=== PATIENT | male | born 1935 | race Caucasian/White ===

== ENCOUNTER 2017-03-22 14:54 | Inpatient (IN) | payer MEDICARE, BC ==
[~2017-03-22] VITALS: Ht 177.8 cm; Wt 100.9 kg
[2017-03-22 15:36] LABS: BASOPHILS 0.2 % (0-2); EOSINOPHILS 3.2 % (0-7); HEMATOCRIT 23.6 % (42.0-54.0); HEMOGLOBIN 7.6 g/dL (13.5-17.5); IMMATURE GRANULOCYTES 0.7 % (0-5); LYMPHOCYTES 19.3 % (15-50); MCH 29.7 pg (26.0-34.0); MCHC 32.2 g/dL (31.0-37.0); MCV 92.2 fL (80.0-100.0); MEAN PLATELET VOLUME 10.9 fL (7.4-10.4); MONOCYTES 8.1 % (2-11); NEUTROPHILS 68.5 % (40-80); PLATELET COUNT 195 10x3/uL (130-400); RBC 2.56 10x6/uL (4.20-6.10); RDW 14.7 % (11.5-14.5); WBC 8.4 10x3/uL (4.8-10.8)
[2017-03-22 15:44] LABS: APTT 35.2 SECONDS (22.8-39.4)
[2017-03-22 15:45] LABS: INR 2.72 (0.85-1.17)
[2017-03-22 16:07] LABS: ALBUMIN 3.2 g/dL (3.4-5.0); ANION GAP 11.2 mmol/L (8-16); BILIRUBIN - TOTAL 0.4 mg/dL (0.2-1.3); CALCIUM 8.4 mg/dL (8.5-10.1); CARBON DIOXIDE 22.7 mmol/L (21.0-32.0); CREATININE - SERUM 2.3 mg/dL (0.6-1.3); POTASSIUM - SERUM 4.9 mmol/L (3.5-5.1); PROTEIN - SERUM 6.6 g/dL (6.4-8.2)
[2017-03-22] MEDS ORDERED: CRESTOR20 MG PO (17:33)
[2017-03-22] MEDS ORDERED: COZAAR100 MG PO (17:33)
[2017-03-22] MEDS ORDERED: METOPROLOL TART50 MG PO (17:33)
[2017-03-22] MEDS ORDERED: PLAVIX75 MG PO (17:33)
[2017-03-22] MEDS ORDERED: COUMADIN2.5 MG PO (17:33)
[2017-03-22] MEDS ORDERED: JANUVIA50 MG PO (17:33)
[2017-03-22] MEDS ORDERED: NEURONTIN 300300 MG PO (17:33)
--- NOTE | 2017-03-22 18:50 | NUR ---
REC'D REPORT FROM OUTSIDE [employer] SAL[employer] REPRESENTATIVEKATIE CUETO - AWAITING TRANSFER
[2017-03-22 19:00] VITALS: BP 178/83
--- NOTE | 2017-03-22 19:00 | NUR ---
1900: Pt rec'd from ED via STR and placed in room wt HOB 30 degrees at this time. All monitors established and alarms on.
--- NOTE | 2017-03-22 19:06 | NUR ---
PT TRANSFERRED VIA STRETCHER WITH BAKER HEAD (ROM) - PT AA&O X 3 - DENIES PAIN NOR DISTRESSS. PT ABLE TO STAND AND TRANSFER TO BED WITH ASST X1. REPORT GIVEN TO ONCOMING RN
--- NOTE | 2017-03-22 19:15 | NUR ---
1914: Pt with RTLSC intact with NS and PRBC infusing.
[2017-03-22 19:30] VITALS: BP 178/83; BMI 31.5
[2017-03-22 20:00] VITALS: BP 157/76
--- NOTE | 2017-03-22 20:00 | NUR ---
2000: Dr. Read here at bedside. New orders rec'd and noted. Protonix gtt started at 8 mg/hr.
[2017-03-22] MEDS ORDERED: LOPRESSOR25 MG PO (20:18)
[2017-03-22] MEDS ORDERED: HYDROCODONE-APA1 TAB PO (20:20)
[2017-03-22 21:00] VITALS: BP 154/77
--- NOTE | 2017-03-22 21:00 | NUR ---
2100: Pt's son in room and update provided. Verbalized understanding.
--- NOTE | 2017-03-22 21:00 | NUR ---
2100: 2nd Unit of PRBC admin.
[2017-03-22 22:00] VITALS: BP 136/70
[2017-03-22 23:00] VITALS: BP 154/76
--- NOTE | 2017-03-22 23:00 | NUR ---
2300: Pt remains SR 90's on CM (Pt has hx ICD/PPM) with SBP 130-150. No bleeding seen at this time. Pt denies nausea at this time and states he feels a little better than earlier.
[2017-03-23] VITALS (24 sets, daily range): BP systolic 102–178; BP diastolic 53–85
[2017-03-23 01:24] LABS: HEMATOCRIT 26.3 % (42.0-54.0); HEMOGLOBIN 8.8 g/dL (13.5-17.5)
--- NOTE | 2017-03-23 03:00 | NUR ---
0300: Pt remains SR on CM with SBP 130-150. No change in IVF/UOP at this time.
--- NOTE | 2017-03-23 05:00 | NUR ---
0500: No change in pt RESP/CV/NV status. No change in IVF/UOP at this time. (See I/O) Pt without c/o at this time. No bleeding seen. Lab drawn from CVL and sent to lab.
[2017-03-23 05:11] LABS: BASOPHILS 0.2 % (0-2); EOSINOPHILS 2.7 % (0-7); HEMATOCRIT 25.3 % (42.0-54.0); HEMOGLOBIN 8.4 g/dL (13.5-17.5); IMMATURE GRANULOCYTES 0.6 % (0-5); LYMPHOCYTES 14.6 % (15-50); MCHC 33.2 g/dL (31.0-37.0); MCV 90.4 fL (80.0-100.0); MEAN PLATELET VOLUME 10.8 fL (7.4-10.4); MONOCYTES 12.8 % (2-11); NEUTROPHILS 69.1 % (40-80); PLATELET COUNT 139 10x3/uL (130-400); RDW 14.6 % (11.5-14.5); WBC 8.4 10x3/uL (4.8-10.8)
[2017-03-23 05:33] LABS: APTT 33.6 SECONDS (22.8-39.4); INR 2.78 (0.85-1.17); PROTIME 29.6 SECONDS (11.6-15.0)
[2017-03-23 05:52] LABS: ANION GAP 11.1 mmol/L (8-16); CARBON DIOXIDE 23.4 mmol/L (21.0-32.0); CREATININE - SERUM 1.8 mg/dL (0.6-1.3); POTASSIUM - SERUM 4.5 mmol/L (3.5-5.1)
--- NOTE | 2017-03-23 07:15 | NUR ---
RECEIVED PT FOR CARE. PT RESTING IN BED WITH EYES OPEN. CALL LIGHT WITHIN REACH. ASSESSMENT COMPLETED. VSS AT THIS TIME. PT DENIES NAUSEA. VOIDING IN URINAL WITHOUT DIFFICULTY.
--- NOTE | 2017-03-23 10:11 | NUR ---
GI LAB AT BEDSIDE AND SET UP FOR EGD. PT'S BROTHER IN WAITING ROOM. DR. BRANNON AWARE.
--- NOTE | 2017-03-23 10:45 | NUR ---
EGD COMPLETED. PT TOLERATED WELL. DR. BRANNON UPDATED DR. GASPAR AND CALLED DR. LEMUS FOR NEW CONSULT.
--- NOTE | 2017-03-23 11:10 | NUR ---
DR. GASPAR AND DR. BRANNON UPDATED PT'S FAMILY OF PLAN OF CARE.
[2017-03-23 12:13] LABS: HEMATOCRIT 24.4 % (42.0-54.0); HEMOGLOBIN 8.1 g/dL (13.5-17.5)
[2017-03-23] MEDS ORDERED: XALATAN 0.0052.5 ML LEFT EYE (12:13)
--- NOTE | 2017-03-23 13:21 | NUR ---
FFP INFUSION STARTED TO RIGHT DLSC. PT'S VSS AT THIS TIME. NO S/S OF DISTRESS NOTED.
--- NOTE | 2017-03-23 13:45 | NUR ---
FFP INFUSED. PT TOLERATED WELL. VSS.
--- NOTE | 2017-03-23 14:08 | NUR ---
PLATELETS STARTED TO RIGHT DLSC. VSS AT THIS TIME.
--- NOTE | 2017-03-23 15:30 | NUR ---
FIRST UNIT OF PRBCs STARTED. VSS AT THIS TIME. NO S/S OF DISTRESS NOTED. PT'S FAMILY AT BEDSIDE. UPDATED ON PT'S STATUS.
--- NOTE | 2017-03-23 16:45 | NUR ---
PT HAD SMALL BM. PT CLEANED AND PARTIAL LINENS CHANGED. TOLERATED WELL.
--- NOTE | 2017-03-23 18:04 | NUR ---
PT UP TO BEDSIDE COMMODE WITH NURSE X2. VOIDED APPROX 300 CC OF DARK BLACK LIQUID STOOL. VIVEK CARE GIVEN. PT GIVEN BATH AND COMPLETE LINEN CHANGE.
--- NOTE | 2017-03-23 19:15 | NUR ---
REPORT RECIEVED. ASSESSMENT COMPLETED. PT ALERT AND ORIENATED X4. LUNG SOUNDS CLEAR IN ALL LOBES. PT ON TELEMETRY WITH A RATE OF 86 AND RHYTHM OF NORMAL SINUS. PT HAS PALP PULSES IN ALL EXTREMITIES. BOWEL SOUNDS ACTIVE X4. PT HAS SCD'S ON. PT POSITIONED FOR COMFORT. WILL CONTINUE TO MONITOR.
--- NOTE | 2017-03-23 21:00 | NUR ---
NO VISITORS AT THIS TIME. PT POSITIONED FOR COMFORT WILL CONTINUE TO MONITOR.
--- NOTE | 2017-03-23 21:50 | NUR ---
PT UNIT OF BLOOD IS FINISHED WILL WAIT AND DRAW LABS AND ASSESSFOR MORE BLOOD PER ORDER.
[2017-03-23 22:44] LABS: HEMATOCRIT 26.8 % (42.0-54.0); HEMOGLOBIN 8.9 g/dL (13.5-17.5)
--- NOTE | 2017-03-23 23:00 | NUR ---
REASSESSMENT COMPLETED. NO ACUTE CHANGES. PT POSITIONED FOR COMFORT WILL CONTINUE TO MONITOR.
[2017-03-24] VITALS (24 sets, daily range): BP systolic 113–188; BP diastolic 56–86; Ht 177.8 cm; Wt 100.9 kg
--- NOTE | 2017-03-24 01:00 | NUR ---
PT ASLEEP IN BED. DENIES ANY NEEDS. WILL CONTINUE TO MONITOR.
--- NOTE | 2017-03-24 03:00 | NUR ---
REASSESSMENT COMPLETED. NO ACUTE CHANGES. PT SLEEPING IN BED DENIES ANY NEEDS. WILL CONTINUE TO MONITOR PT.
--- NOTE | 2017-03-24 05:13 | NUR ---
PT SLEEPING IN BED DENIES ANY NEEDS. WILL CONTINUE TO MONITOR PT.
[2017-03-24 06:12] LABS: BASOPHILS 0.3 % (0-2); EOSINOPHILS 3.6 % (0-7); HEMATOCRIT 28.9 % (42.0-54.0); HEMOGLOBIN 9.7 g/dL (13.5-17.5); IMMATURE GRANULOCYTES 0.1 % (0-5); LYMPHOCYTES 14.1 % (15-50); MCH 29.2 pg (26.0-34.0); MCHC 33.6 g/dL (31.0-37.0); MEAN PLATELET VOLUME 10.2 fL (7.4-10.4); MONOCYTES 12.5 % (2-11); NEUTROPHILS 69.4 % (40-80); PLATELET COUNT 142 10x3/uL (130-400); RBC 3.32 10x6/uL (4.20-6.10); RDW 17.1 % (11.5-14.5)
[2017-03-24 06:35] LABS: ANION GAP 12.1 mmol/L (8-16); CALCIUM 7.7 mg/dL (8.5-10.1); CARBON DIOXIDE 24.1 mmol/L (21.0-32.0); CREATININE - SERUM 1.7 mg/dL (0.6-1.3); POTASSIUM - SERUM 4.2 mmol/L (3.5-5.1)
[2017-03-24 06:39] LABS: INR 2.01 (0.85-1.17); PROTIME 22.8 SECONDS (11.6-15.0)
--- NOTE | 2017-03-24 07:30 | NUR ---
PT AWAKE, ALERT AND ORIENTED. RESTING ON HIS BACK. ON ROOM AIR. O2 SAT 98%. TEMP. 98.3 ORALLY. R-SUBCLAVIAN PATENT WITH PROTONIX RUNNING AT 10ML/HR AND NS INFUSING AT 75ML/HR. REST OF ASSESSMENT IN ASSESSMENT CHART. CALL LIGHT IN REACH. BED SIDE RAILS UP X 2. BED IN LOW POSITION.
--- NOTE | 2017-03-24 09:56 | NUR ---
PT BP INCREASING. LAST SET WAS 181/74. CONTINUED LOPRESSOR PER ORDERS. DOSE GIVEN.
--- NOTE | 2017-03-24 11:38 | NUR ---
PT SLEEPING ON HIS BACK. BP HAS COME DOWN. 138/68 WAS THE LAST READING. WILL CONTINUE TO MONITOR.
--- NOTE | 2017-03-24 12:07 | NUR ---
BS 163. GAVE 2 UNITS OF HUMALOG PER SLIDING SCALE. COZAAR GIVEN PER ORDERS.
[2017-03-24 12:28] LABS: HEMATOCRIT 29.5 % (42.0-54.0)
--- NOTE | 2017-03-24 13:34 | NUR ---
PT RESTING QUIETLY. ASKED TO HAVE SCD'S REMOVED A LITTLE WHILE. ATE ABOUT 50% OF LUNCH. WILL CONTINUE TO MONITOR.
--- NOTE | 2017-03-24 14:47 | NUR ---
ASKED DR. TEIXEIRA IF INR LABS NEEDED TO BE ORDERED. HE SAID NO ACTION NEEDED AT THIS TIME.
--- NOTE | 2017-03-24 15:09 | NUR ---
PT FAMILY IN ROOM. ICE WATER PROVIDED.
--- NOTE | 2017-03-24 16:34 | NUR ---
PT RESTING COMFORTABLY.
--- NOTE | 2017-03-24 17:00 | NUR ---
PULLED UP IN BED. DINNER TRAY SET UP.
--- NOTE | 2017-03-24 17:49 | NUR ---
BS 169. GAVE 2 UNITS OF HUMALOG PER SLIDING SCALE.
--- NOTE | 2017-03-24 18:04 | NUR ---
TRANSFERRED PT TO CHAIR. CLEAN BED LINENS PROVIDED. CLEAN GOWN PROVIDED. PT WANTS TO SIT IN CHAIR FOR A LITTLE WHILE. INSTRUCTED TO CALL FOR HELP WHEN WANTING BACK IN THE BED.
[2017-03-24 18:30] LABS: HEMATOCRIT 30.9 % (42.0-54.0); HEMOGLOBIN 10.4 g/dL (13.5-17.5)
--- NOTE | 2017-03-24 18:52 | NUR ---
TRANSFERRED PT BACK TO BED. SON IN ROOM.
--- NOTE | 2017-03-24 19:15 | NUR ---
REPORT RECIEVED. ASSESSMENT COMPLETED. PT ALERT AND ORIENTATED X4. PUPILS AT A 3 AND REACTIVE TO LIGHT. PT HAS CLEAR LUNG SOUNDS IN ALL LOBES. PT IS ON TELEMETRY WITH A RATE OF 61 RHYTHM OF SINUS BEING PACED. PT HAS PALP PULSES IN ALL EXTREMITIES. PT IS ON ROOM AIR WITH SATURATION IN THE UPPER 90'S. PT POSITIONED FOR COMFORT WILL CONTINUE TO MONITOR.
--- NOTE | 2017-03-24 21:15 | NUR ---
STOPPED IN AND TALKED WITH PT. DISCUSSED DOING A EGD TOMMOROW AFTERNOON. PT UNDERSTOOND WHATS IS GOING ON AND WHAT WILL HAPPEN. PT HASNT YET SIGNED THE CONSENT FORM BUT WILL DO THAT BEFORE MORNING. PT POSITIONED FOR COMFORT WILL CONTINUE TO MONITOR.
--- NOTE | 2017-03-24 23:00 | NUR ---
REASSESSMENT COMPLETED. NO ACUTE CHANGES AT THIS TIME. PT POSITIONED FOR COMFORT WILL CONTINUE TO MONITOR.
[2017-03-25] VITALS (26 sets, daily range): BP systolic 111–195; BP diastolic 48–95
--- NOTE | 2017-03-25 03:00 | NUR ---
REASSESSMENT COMPLETED. NO ACUTE CHANGES. PT POSITIONED FOR COMFORT. WILL CONTINUE TO MONITOR.
[2017-03-25 03:57] LABS: BASOPHILS 0.1 % (0-2); EOSINOPHILS 3.8 % (0-7); HEMATOCRIT 29.1 % (42.0-54.0); HEMOGLOBIN 9.7 g/dL (13.5-17.5); IMMATURE GRANULOCYTES 0.4 % (0-5); LYMPHOCYTES 15.8 % (15-50); MCH 29.5 pg (26.0-34.0); MCHC 33.3 g/dL (31.0-37.0); MCV 88.4 fL (80.0-100.0); MEAN PLATELET VOLUME 10.3 fL (7.4-10.4); MONOCYTES 14.3 % (2-11); NEUTROPHILS 65.6 % (40-80); PLATELET COUNT 152 10x3/uL (130-400); RBC 3.29 10x6/uL (4.20-6.10); RDW 17.6 % (11.5-14.5); WBC 8.3 10x3/uL (4.8-10.8)
[2017-03-25 04:13] LABS: INR 2.09 (0.85-1.17); PROTIME 23.5 SECONDS (11.6-15.0)
--- NOTE | 2017-03-25 05:00 | NUR ---
GAVE PT A FULL BATH AND A COMPLETE LINEN CHANGE. GOT PT TO SIGN CONSENT FOR EGD TODAY WILL PASS ALOMG IN REPORT.
--- NOTE | 2017-03-25 07:38 | NUR ---
SHIFT ASSESSMENT COMPLETE. PATIENT IS NPO TODAY FOR EGD, AND PATIENT VERBALIZES UNDERSTANDING. CALL LIGHT WITHIN REACH, AND BED IN LOW POSISTION.
--- NOTE | 2017-03-25 09:35 | NUR ---
MUNIRA FROM [facility] WAS IN TO SEE PATIENT. PATIENT IS ALERT AND ORIENTED WITH SON AT BEDSIDE. EDUCATED PATIENT ON COUMADIN AND FREQUENCY OF LAB DRAWS, WILL GIVE PATIENT INFO ON COUMADIN DIET TODAY.
--- NOTE | 2017-03-25 11:20 | NUR ---
DR. WESTFALL IN TO SEE PATIENT.
[2017-03-25 13:07] LABS: HEMATOCRIT 28.8 % (42.0-54.0); HEMOGLOBIN 9.6 g/dL (13.5-17.5)
--- NOTE | 2017-03-25 13:18 | NUR ---
SURGERY HERE IN ROOM WITH PATIENT TO PERFORM EGD.
--- NOTE | 2017-03-25 13:26 | NUR ---
* Is the patient Alert and Oriented? Yes 0 * How many steps to enter\exit or inside your home? 0 0 * PCP Dr. Paris 0 * Pharmacy [facility] on [address] 0 * Preadmission Environment Home with Family 0 * ADLs Independent 0 * Equipment Bedside Commode Cane Glucometer Rolling Walker Shower Chair Wheelchair 0 * List name and contact numbers for known caregivers / representatives who currently or will assist patient after discharge: Fabrizio Beaulieu [phone] 0 * Additional services required to return to the preadmission environment? No 0 * Can the patient safely return to the preadmission environment? Yes 0 * Has this patient been hospitalized within the prior 30 days at any hospital? No Patient Name: NERY BEAULIEU Admission Status: ER Accout number: [id number] Admission Date: 03-22-2017 : 1933 Admission Diagnosis: Attending: ELIZABETH Current LOS: 3 Planned Disposition: Home Primary Insurance: MEDICARE A & B Discharge Planning Comments: CM met with patient & son at bedside. Patient lives at home with his son. He is fairly independent with all ADL's but does use a walker at times. He also has a cane, BSC, SC & WC. He has had home health services in the past with [facility], but is not currently on service. At mt, he will return home with his son. CM will follow & assist as needed. Bowling Alley Attendant: Carlene Gilbert
--- NOTE | 2017-03-25 13:31 | NUR ---
1ST PRBC'S STARTED NURSE IN ROOM WITH PATIENT.
--- NOTE | 2017-03-25 13:34 | NUR ---
GI TEAM HERE AWAITING ARRIVAL OF DR. NAVA.
--- NOTE | 2017-03-25 13:54 | NUR ---
DR. NAVA IN ROOM PERFORMING EGD. PATIENT IS TOLERATING WELL.
--- NOTE | 2017-03-25 14:06 | NUR ---
DR. NAVA FINISHED WITH EGD. V/S WITHIN NORMAL LIMITS. ANESTHIA IN ROOM WITH PATIENT.
--- NOTE | 2017-03-25 14:09 | NUR ---
REPORT RECEIVED FROM SHAYY GIBSON RN. SHE WILL BE STAYING WITH THE PATIENT A LITTLE WHILE LONGER.
--- NOTE | 2017-03-25 14:11 | NUR ---
ANESTHESIA INFORMED THAT 220MG OF PROPOFOL WAS GIVEN DURING PROCEDURE.
--- NOTE | 2017-03-25 14:56 | NUR ---
BLOOD DRAW DONE FOR PTT AND INR.
[2017-03-25 18:53] LABS: HEMATOCRIT 29.2 % (42.0-54.0); HEMOGLOBIN 9.7 g/dL (13.5-17.5)
--- NOTE | 2017-03-25 19:30 | NUR ---
REPORT RECIEVED, SHIFT ASSESSMENT COMPLETE, PT IS ALERT AND ORIENTED, ON RA WITH 97% O2 SAT. LUNGS CLEAR IN ALL LOBES, S1S2, PACEMAKER TO LEFT UPPER CHEST, PATENT RIGHT SC CVL..NS AND PROTONIX INFUSING VIA PUMP, ABDOMEN IS SOFT AND ROUND WITH ACTIVE BS, URINAL AT BEDSIDE, ALL PPP, VSS, CALL LIGHT IN REACH
--- NOTE | 2017-03-25 21:00 | NUR ---
NO VISITORS AT THIS TIME, WILL CON'T TO MONITOR
--- NOTE | 2017-03-25 23:09 | NUR ---
REASSESSMENT COMPLETE, NO CHANGES NOTED, PT RESTING AT THIS TIME, NO NEEDS NOTED, VSS, CALL LIGHT IN REACH
[2017-03-26] VITALS (15 sets, daily range): BP systolic 136–197; BP diastolic 57–96
--- NOTE | 2017-03-26 01:14 | NUR ---
RESTING AT THIS TIME, NO NEEDS NOTED, WILL CON'T TO MONITOR
--- NOTE | 2017-03-26 03:16 | NUR ---
REASSESSMENT COMPLETE, NO CHANGES NOTED, PT AWAKE AT THIS TIME, DENIES ANY NEEDS OR WANTS, VSS, CALL LIGHT IN REACH
[2017-03-26 04:10] LABS: BASOPHILS 0.1 % (0-2); EOSINOPHILS 1.8 % (0-7); HEMATOCRIT 28.2 % (42.0-54.0); HEMOGLOBIN 9.3 g/dL (13.5-17.5); IMMATURE GRANULOCYTES 0.3 % (0-5); LYMPHOCYTES 8.5 % (15-50); MCH 29.3 pg (26.0-34.0); MEAN PLATELET VOLUME 10.6 fL (7.4-10.4); MONOCYTES 17.3 % (2-11); PLATELET COUNT 151 10x3/uL (130-400); RBC 3.17 10x6/uL (4.20-6.10); RDW 17.1 % (11.5-14.5); WBC 9.7 10x3/uL (4.8-10.8)
[2017-03-26 04:21] LABS: INR 2.07 (0.85-1.17); PROTIME 23.4 SECONDS (11.6-15.0)
[2017-03-26 04:27] LABS: ANION GAP 14.4 mmol/L (8-16); CALCIUM 7.7 mg/dL (8.5-10.1); CARBON DIOXIDE 21.3 mmol/L (21.0-32.0); CREATININE - SERUM 1.6 mg/dL (0.6-1.3); POTASSIUM - SERUM 3.7 mmol/L (3.5-5.1)
--- NOTE | 2017-03-26 08:35 | NUR ---
DR. NAVA HERE IN TO SEE PATIENT. PATIENT IS STILL UP TO BEDSIDE TOLERATING IT WELL.
--- NOTE | 2017-03-26 09:50 | NUR ---
PATIENT ASSISTED BACK TO BED. STATES HE IS STILL HURTING. ATTEMPTED TO GET PATIENT COMFORTABLE IN BED, AND WILL CHECK PAIN SCALE AGAIN.
--- NOTE | 2017-03-26 11:08 | NUR ---
Nutrition follow-up: Diet advanced to full liquids post procedure; diet to advance to ADA consistent CHO soft today. Labs reviewed Wt: 223# RDN following.
[2017-03-26 12:39] LABS: HEMATOCRIT 27.1 % (42.0-54.0)
--- NOTE | 2017-03-26 14:16 | NUR ---
PATIENT IS SLEEPING WITH NO DISTRESS NOTED AT THIS TIME. CALL LIGHT WITHIN REACH, AND BED IN LOW POSITION.
[2017-03-26 18:27] LABS: HEMATOCRIT 28.6 % (42.0-54.0); HEMOGLOBIN 9.5 g/dL (13.5-17.5)
--- NOTE | 2017-03-26 19:00 | NUR ---
DR. NAVA AT BEDSIDE, NEW ORDERS RECIEVED, PT IS ALERT AND ORIENTED, SITTING UP IN CHAIR, ON RA WITH 98% O2 SAT. LUNGS CLEAR IN ALL LOBES, S1S2, CM-NSR, PATENT RIGHT SC CVL...SEE IV FLOW SHEET...ABDOMEN IS SOFT AND ROUND WITH ACTIVE BS, URINAL AT BEDSIDE, ALL PPP, VSS, CALL LIGHT IN REACH
--- NOTE | 2017-03-26 19:08 | NUR ---
PATIENT UP TO CHAIR WITH [address] NAVA IN TO SEE PATIENT.
--- NOTE | 2017-03-26 20:45 | NUR ---
RECIEVED FROM ICU VIA BED. ALERT ORIENTED. IV INGUSING TO RIGHT SUBCLAVIAN WITHOUT REDNESS OR EDEMA NOTED. HAS LIMITED ROM TO LEFT ARM DUE TO DEFORMITY AT . ORIENTED TO ROOM. CL IN REACH
--- NOTE | 2017-03-27 02:05 | NUR ---
RESTING QUIETLY. NO DISTRESS NOTED. CL IN REACH
[2017-03-27 04:00] VITALS: BP 111/66
--- NOTE | 2017-03-27 05:35 | NUR ---
AWAKE WITH NO COMPLAINTS. CL IN REACH
[2017-03-27 06:17] LABS: BASOPHILS 0.1 % (0-2); HEMATOCRIT 25.1 % (42.0-54.0); HEMOGLOBIN 8.2 g/dL (13.5-17.5); IMMATURE GRANULOCYTES 0.3 % (0-5); LYMPHOCYTES 8.4 % (15-50); MCH 29.5 pg (26.0-34.0); MCHC 32.7 g/dL (31.0-37.0); MCV 90.3 fL (80.0-100.0); MEAN PLATELET VOLUME 10.7 fL (7.4-10.4); NEUTROPHILS 72.2 % (40-80); PLATELET COUNT 145 10x3/uL (130-400); RBC 2.78 10x6/uL (4.20-6.10); WBC 10.5 10x3/uL (4.8-10.8)
[2017-03-27 06:25] LABS: ANION GAP 14.7 mmol/L (8-16); CALCIUM 7.6 mg/dL (8.5-10.1); CARBON DIOXIDE 20.8 mmol/L (21.0-32.0); CREATININE - SERUM 1.9 mg/dL (0.6-1.3); POTASSIUM - SERUM 3.5 mmol/L (3.5-5.1)
[2017-03-27 06:35] LABS: INR 1.8 (0.85-1.17); PROTIME 20.9 SECONDS (11.6-15.0)
--- NOTE | 2017-03-27 07:45 | NUR ---
PT AOX4 RESP EVEN AND NONLABORED PT DENIES NEEDS AT THIS TIME IV TO RIGHT SUBCLAVIAN PATENT AND INTACT AT THIS TIME SRX2 BED AT LOWEST SETTING CALL LIGHT WITHIN REACH WITHIN REACH WILL CONTINUE TO MONITOR
[2017-03-27 08:31] VITALS: BP 140/66
--- NOTE | 2017-03-27 10:53 | NUR ---
NUTRITION MONITORING & EVAL CHART REVIEWED, PT VISIT. TOLERATING SOFT DIET WITH ~ 75% INTAKE MEALS. WILL CONTINUE TO PROVIDE DIET, MONITOR PO INTAKE. RD FOLLOWING
[2017-03-27 12:00] VITALS: BP 139/70
[2017-03-27 15:47] VITALS: BP 125/55
[2017-03-27 19:50] VITALS: BP 165/69
--- NOTE | 2017-03-27 20:53 | NUR ---
AWAKE,ALERT, ORIENTED X 3. NO COMPLAINTS OF N/V. NO COMPLAITNS OF PAIN. IV INFUSING TO RIGHT SC WITHOUT REDNESS OR EDEMA NOTED. CL IN REACH
[2017-03-28 00:05] VITALS: BP 144/71
[2017-03-28 04:00] VITALS: BP 152/53
--- NOTE | 2017-03-28 04:47 | NUR ---
RN NOTE: PT RESTING QUIETLY AT THIS TIME. RIGHT SC PATENT WITH NS INFUSING AT 75 ML / HR AND PROTONIX INFUSING AT 10 ML / HR. SCD'S IN USE. WILL CONTINUE TO MONITOR FOR NEEDS.
[2017-03-28 06:55] LABS: BASOPHILS 0.2 % (0-2); EOSINOPHILS 1.3 % (0-7); HEMATOCRIT 23.3 % (42.0-54.0); HEMOGLOBIN 7.7 g/dL (13.5-17.5); IMMATURE GRANULOCYTES 0.3 % (0-5); LYMPHOCYTES 6.7 % (15-50); MCV 90.7 fL (80.0-100.0); MEAN PLATELET VOLUME 10.8 fL (7.4-10.4); MONOCYTES 15.7 % (2-11); NEUTROPHILS 75.8 % (40-80); PLATELET COUNT 155 10x3/uL (130-400); RBC 2.57 10x6/uL (4.20-6.10); RDW 16.5 % (11.5-14.5); WBC 9.3 10x3/uL (4.8-10.8)
[2017-03-28 07:03] LABS: INR 1.68 (0.85-1.17); PROTIME 19.7 SECONDS (11.6-15.0)
[2017-03-28 07:08] LABS: ALBUMIN 2.1 g/dL (3.4-5.0); BILIRUBIN - TOTAL 0.99 mg/dL (0.2-1.3); CALCIUM 7.5 mg/dL (8.5-10.1); CARBON DIOXIDE 21.3 mmol/L (21.0-32.0); CREATININE - SERUM 1.8 mg/dL (0.6-1.3); POTASSIUM - SERUM 3.3 mmol/L (3.5-5.1); PROTEIN - SERUM 5.9 g/dL (6.4-8.2)
--- NOTE | 2017-03-28 07:40 | NUR ---
PT AOX4 RESP EVEN AND NONLABORED PT DENIES NEEDS AT THIS TIME IV TO RIGHT SUBCLAVIAN PATENT AND INTACT AT THIS TIME SRX2 BED AT LOWEST POSITION CALL LIGHT WITHIN REACH WILL CONTINUE TO MONITOR
[2017-03-28 07:55] VITALS: BP 163/65
[2017-03-28 12:17] VITALS: BP 169/64
--- NOTE | 2017-03-28 16:45 | NUR ---
PT TAKEN BY LYE MACHINE OPERATOR TO GI LAB VIA BED AT THIS TIME
[2017-03-28 20:00] VITALS: BP 164/78
--- NOTE | 2017-03-28 22:58 | NUR ---
LAYING IN BED AWAKE ATT, BED LOW AND LOCKED, CALL LIGHT IN REACH. NO S&S OF DISTRESS NOTED, WILL CPOC.
[2017-03-29] VITALS: BP 146/66
[2017-03-29 03:59] VITALS: BP 159/72
[2017-03-29 06:25] LABS: BASOPHILS 0.2 % (0-2); EOSINOPHILS 1.8 % (0-7); HEMATOCRIT 26.7 % (42.0-54.0); HEMOGLOBIN 8.9 g/dL (13.5-17.5); IMMATURE GRANULOCYTES 0.1 % (0-5); LYMPHOCYTES 7.5 % (15-50); MCH 29.7 pg (26.0-34.0); MCHC 33.3 g/dL (31.0-37.0); MONOCYTES 13.4 % (2-11); PLATELET COUNT 182 10x3/uL (130-400); RDW 16.6 % (11.5-14.5); WBC 8.1 10x3/uL (4.8-10.8)
[2017-03-29 06:37] LABS: INR 1.65 (0.85-1.17); PROTIME 19.5 SECONDS (11.6-15.0)
[2017-03-29 06:48] LABS: ANION GAP 12.4 mmol/L (8-16); BILIRUBIN - TOTAL 1.52 mg/dL (0.2-1.3); CALCIUM 7.8 mg/dL (8.5-10.1); CARBON DIOXIDE 21.8 mmol/L (21.0-32.0); CREATININE - SERUM 1.5 mg/dL (0.6-1.3); POTASSIUM - SERUM 3.2 mmol/L (3.5-5.1); PROTEIN - SERUM 6.2 g/dL (6.4-8.2)
--- NOTE | 2017-03-29 07:30 | NUR ---
A&O, DENIES NEEDS, DRINKING CONTRAST FOR CT, BED LOWEST POSITION, CALL LIGHT IN REACH, WILL CONTINUE TO MONITOR
[2017-03-29 07:57] VITALS: BP 172/81
--- NOTE | 2017-03-29 09:00 | NUR ---
PATIENT ALERT IN [place] POSITION. NO SIGNS OF DISTRESS NOTED. SIDE RAILS UP X2. BED IN LOW POSITION. CALL LIGHT IN REACH.
[2017-03-29 12:01] VITALS: BP 164/79
[2017-03-29 16:25] LABS: APPEARANCE CLEAR (CLEAR); BILIRUBIN NEGATIVE (NEGATIVE); COLOR STRAW (YELLOW); GLUCOSE NEGATIVE (NEGATIVE); KETONE NEGATIVE (NEGATIVE); LEUKOCYTE ESTERASE NEGATIVE (NEGATIVE); NITRITE NEGATIVE (NEGATIVE); PROTEIN NEGATIVE (NEGATIVE); SPECIFIC GRAVITY 1.005 (1.005-1.020); UROBILINOGEN NORMAL (NORMAL)
[2017-03-29 16:32] VITALS: BP 184/64
[2017-03-29 20:00] VITALS: BP 138/79
[2017-03-30] VITALS: BP 113/66
--- NOTE | 2017-03-30 02:41 | NUR ---
ASSESSED, AT THE BEGINNING OF THE SHIFT. PT IS ALERT AND ORIENTED, ABLE TO VERBALIZE NEEDS. HE WAS WATCHING TV FOR A WHILE AND THEN FELL ASLEEP. HE IS EASY TO AROUSE FOR MEDS OR VITAL SIGNS AND HAS A URINAL FOR VOIDING AT THE BEDSIDE. HE HAS BEEN INCONT. AT THE FIRST OF THE SHIFT WITH STOOL AND REFUSED TO TAKE ANY MORE LAXATIVE TYPE MEDS AT HS. HE FELT THAT HE WAS ALREADY HAVING DIARRHEA. NOW COMPLAINTS HAVE BEEN VOICED. THE BED IS LOW, RAILS UP X'S 2 WITH THE CALL LIGHT AT HAND.
[2017-03-30 06:50] LABS: BASOPHILS 0.3 % (0-2); EOSINOPHILS 3.4 % (0-7); HEMATOCRIT 27.2 % (42.0-54.0); HEMOGLOBIN 9.2 g/dL (13.5-17.5); IMMATURE GRANULOCYTES 0.2 % (0-5); LYMPHOCYTES 8.9 % (15-50); MCH 30.4 pg (26.0-34.0); MCHC 33.8 g/dL (31.0-37.0); MCV 89.8 fL (80.0-100.0); MEAN PLATELET VOLUME 10.7 fL (7.4-10.4); NEUTROPHILS 72.2 % (40-80); PLATELET COUNT 203 10x3/uL (130-400); RBC 3.03 10x6/uL (4.20-6.10); RDW 16.5 % (11.5-14.5); WBC 6.5 10x3/uL (4.8-10.8)
[2017-03-30 06:57] LABS: INR 2.04 (0.85-1.17)
[2017-03-30 07:06] LABS: BILIRUBIN - TOTAL 0.89 mg/dL (0.2-1.3); CARBON DIOXIDE 23.2 mmol/L (21.0-32.0); CREATININE - SERUM 1.5 mg/dL (0.6-1.3); PROTEIN - SERUM 6.3 g/dL (6.4-8.2)
[2017-03-30 07:20] LABS: ANION GAP 12.7 mmol/L (8-16); POTASSIUM - SERUM 2.9 mmol/L (3.5-5.1)
--- NOTE | 2017-03-30 07:30 | NUR ---
RECIEVED PT DURING WALKING ROUNDS.PT RESTING IN BED WITH NO COMPLAINTS OF PAIN OR DISCOMFORT AT THIS TIME. ASSESSMENT DONE PER FLOWSHEET. BED IN LOW POSITION AND CALL LIGHT WITHIN REACH. WILL CONTINUE TO MONITOR.
[2017-03-30 07:52] VITALS: BP 166/72
[2017-03-30 12:35] VITALS: BP 159/74
[2017-03-30 15:53] VITALS: BP 149/73
--- NOTE | 2017-03-30 19:30 | NUR ---
RECIEVED SHIFT REPORT. PT IS ALERT AND ORIENTED AND ABLE TO VERBALIZE NEEDS. IV IS PATENT AND FLUIDS ARE RUNNING PER ORDER. PT IS AMBULATORY WITH ASSISTANCE. PT DENIES ANY PAIN AT THIS TIME. NO NEEDS ARE VERBALIZED AT THIS TIME. WILL CONTINUE TO MONITOR. SIDE RAILS ARE UP X 2. BED IS IN LOWEST POSITION. CALL LIGHT IS WITHIN REACH.
[2017-03-30 20:00] VITALS: BP 161/72
--- NOTE | 2017-03-30 21:21 | NUR ---
SHIFT ASSESSMENT COMPLETED. NIGHT MEDS GIVEN WITH NO PROBLEMS EXCEPT SCHEDULED COLACE, ANUSOL, AND MIRALAX WHICH WERE ALL REFUSED. NO FURTHER NEEDS VOICED. WILL MONITOR. SIDE RAILS X 2. BED LOW. CALL LIGHT IN REACH.
[2017-03-31 04:00] VITALS: BP 157/68
[2017-03-31 04:21] LABS: BASOPHILS 0.4 % (0-2); HEMATOCRIT 28.7 % (42.0-54.0); HEMOGLOBIN 9.6 g/dL (13.5-17.5); IMMATURE GRANULOCYTES 0.3 % (0-5); LYMPHOCYTES 8.9 % (15-50); MCH 29.8 pg (26.0-34.0); MCHC 33.4 g/dL (31.0-37.0); MCV 89.1 fL (80.0-100.0); MEAN PLATELET VOLUME 10.2 fL (7.4-10.4); MONOCYTES 13.7 % (2-11); NEUTROPHILS 73.7 % (40-80); RBC 3.22 10x6/uL (4.20-6.10); RDW 16.7 % (11.5-14.5); WBC 7.7 10x3/uL (4.8-10.8)
[2017-03-31 04:28] LABS: PLATELET COUNT 249 10x3/uL (130-400)
[2017-03-31 04:42] LABS: BILIRUBIN - TOTAL 0.76 mg/dL (0.2-1.3); CALCIUM 8.2 mg/dL (8.5-10.1); CARBON DIOXIDE 22.5 mmol/L (21.0-32.0); CREATININE - SERUM 1.5 mg/dL (0.6-1.3); POTASSIUM - SERUM 3.5 mmol/L (3.5-5.1); PROTEIN - SERUM 6.6 g/dL (6.4-8.2)
[2017-03-31 04:50] LABS: INR 1.92 (0.85-1.17)
--- NOTE | 2017-03-31 08:02 | NUR ---
AWAKE AND ALERT. ORIENTED X3. NO C/O THIS AM. LUNGS ARE CLEAR BILATERALLY, OCCCASSIONAL PRODUCTIVE COUGH REPORTED. SKIN IS INTACT WITHOUT REDNESS. RIGHT SUBCLAVIAN IS PATENT WITHOUT REDNESS AT INSERTION SITE. DENIES NEEDS. WILL ATTEMPT AMBULATION TODAY.
[2017-03-31 08:23] VITALS: BP 196/88
--- NOTE | 2017-03-31 10:00 | NUR ---
UP TO CHAIR AT BEDSIDE WITH 2 PERSON ASSIST. VERY WEAK AT THIS TIME.
--- NOTE | 2017-03-31 11:58 | NUR ---
REQUESTED AND GIVEN ONE HYDROCODONE PO FOR C/O LEFT ARM PAIN LEVEL 7. WILL MONITOR.
[2017-03-31 12:05] VITALS: BP 160/88
[2017-03-31] MEDS ORDERED: MIRALAX17 GM PO (12:54)
[2017-03-31] MEDS ORDERED: CARAFATE1 G/10 ML PO (12:54)
[2017-03-31] MEDS ORDERED: COUMADIN2.5 MG PO (12:54)
[2017-03-31] MEDS ORDERED: PROTONIX40 MG PO (12:54)
[2017-03-31] MEDS ORDERED: COLACE100 MG PO (12:54)
--- NOTE | 2017-03-31 13:25 | NUR ---
PATIENT BEING DISCHARGED TODAY, ORDERED AND [facility] SIGNED FOR [facility]. IMM SERVED. FAMILY AT BEDSIDE.
--- NOTE | 2017-03-31 14:42 | NUR ---
R SUBCLAVIAN REMOVED, 21CM CATHETER INTACT. PRESSURE HELD FOR 5 MINUTES, DRSG APPLIED. PT TOLERATED WELL.
--- NOTE | 2017-03-31 14:49 | NUR ---
DISCHARGED TO HOME AMBULATORY WITH SON. DISCHARGE INSTRUCTIONS GIVEN BOTH VERBALLY AND WRITTEN. ALL QUESTIONS ANSWERED. PATIENT AND SON VERBALIZED UNDERSTANDING OF SAME. NEEDED PRESCRIPTIONS GIVEN TO PATIENT.
== END 2017-03-31 14:50 | disposition home or self-care (01) | DRG 378 ==
LOC: D.ER 14:54 → D.MS 16:05 → OBSVTIME 16:05 → D.MS 17:20 → D.ICU 17:20 → D.MS 03-26 20:24
PROVIDERS: Emergency Medicine; Family Medicine; Internal Medicine Gastroenterology; ADMIT Family Medicine
PROC: 0DJ08ZZ Inspection of Upper Intestinal Tract, Via Natural or Artificial Opening Endoscopic (ICD-10-PCS; principal; 2017-03-23 10:00)
PROC: 0DJ08ZZ Inspection of Upper Intestinal Tract, Via Natural or Artificial Opening Endoscopic (ICD-10-PCS; 2017-03-25)
PROC: 0DJ08ZZ Inspection of Upper Intestinal Tract, Via Natural or Artificial Opening Endoscopic (ICD-10-PCS; 2017-03-28)
DX: K92.2 Gastrointestinal hemorrhage, unspecified (principal); D62 Acute posthemorrhagic anemia; K31.819 Angiodysplasia of stomach and duodenum without bleeding; K57.10 Diverticulosis of small intestine without perforation or abscess without bleeding; K44.9 Diaphragmatic hernia without obstruction or gangrene; K29.70 Gastritis, unspecified, without bleeding; K29.80 Duodenitis without bleeding; K20.9 Esophagitis, unspecified; E11.40 Type 2 diabetes mellitus with diabetic neuropathy, unspecified; Z79.01 Long term (current) use of anticoagulants; E78.5 Hyperlipidemia, unspecified; I12.9 Hypertensive chronic kidney disease with stage 1 through stage 4 chronic kidney disease, or unspecified chronic kidney disease; E11.22 Type 2 diabetes mellitus with diabetic chronic kidney disease; N18.9 Chronic kidney disease, unspecified; Z95.0 Presence of cardiac pacemaker; Z95.2 Presence of prosthetic heart valve; Z86.010 Personal history of colon polyps